=== PATIENT | male | born 1945 ===

== ENCOUNTER → 2016-09-22 | Day surgery (SDC) | payer MEDICARE, OTHER ==
--- NOTE | 2016-09-17 15:55 | Pre-Procedure Note/Attestation ---
Pre-Procedure Note/Attestation Complete Prior to Procedure Planned Procedure: right Procedure Narrative: 1. CATARACT EXTRACTION WITH PHACO AND PC IOL IMPLANTATION, RIGHT EYE. 2.MALYUGIN RING INSERTION, RIGHT EYE FOR FLOPPY IRIS SYNDROME. 3.COMPLEX CATARACT , RIGHT EYE Indications for Procedure Pre-Operative Diagnosis: 1. CATARACT ,RIGHT EYE. 2. FLOPPY IRIS SYNDROME, RIGHT EYE 3. COMPLEX CATARACT , RIGHT EYE. Attestation I attest that I discussed the nature of the procedure; its benefits; risks and complications; and alternatives (and the risks and benefits of such alternatives ), prior to the procedure, with the patient (or the patient's legal signs and displays sales representative). I attest that, if there was a reasonable possibility of needing a blood transfusion, the patient (or the patient's legal signs and displays sales representative) was given the [facility] standardized written summary, pursuant to the [place] Blood Safety Act ([place] Health and Safety Code # 1645, as amended). I attest that I re-evaluated the patient just prior to the surgery and that there has been no change in the patient's H&P, except as documented below: EMA ROBERTS Sep 17, 2016 15:55
[~2016-09-22] VITALS: Ht 168.9 cm; Wt 79.4 kg
[2016-09-22] VITALS (8 sets, daily range): BP systolic 120–141; BP diastolic 67–78
[~2016-09-22] MED LIST: AMLODIPINE BESY10 MG ORAL; Akten 3.5% 1ml Btl ONE; BENAZEPRIL HCL40 MG ORAL; BSS 15ml BTL ONE; BSS 500ml btl ONE; CATAPRES0.1 MG ORAL; Carbachol 0.01% Op Soln 1.5ml vial ONE; Dexamethasone 4mg/ml vial ONE; Diclofenac Sod 0.1% Op Soln ONE; DiphenhydrAMINE 50mg/ml Inj IVP PRN; DiphenhydrAMINE 50mg/ml Inj ONE; EPINEPHrine 1mg/1ml Amp ONE; Gatifloxacin Opth Solution 0.5% ONE; ISOSORBIDE MONO10 MG PO; LIPITOR20 MG ORAL; LR 1000ml 1,000 ML IVLG SCH; LR 1000ml ONE; Labetalol 5mg/ml 20ml vial IV PRN; Lidocaine 1% MPF 10mg/ml 5ml ONE; MINIPRESS1 MG PO; NS Irrig 1000ml ONE; Phenylephrine 10% Opth Soln 5ml ONE; Povidone-Iodine 5% opth solution ONE; Sodium Hyaluronate 10 mg/ml 0.85ml ONE; Sterile Water Irrig 1000ml IRRIG ONE; Tetracaine 0.5% Opth Soln ONE; Tropicamide 1% Opth Soln ONE; acetaZOLAMIDE 125mg tab ORAL ONE; fentaNYL 100 mcg/2 mL IV ONE
[2016-09-22] MEDS: Akten 3.5% 1ml Btl RIGHT EYE SCH ×3 (07:07→07:33)
[2016-09-22] MEDS: Diclofenac Sod 0.1% Op Soln RIGHT EYE SCH ×3 (07:07→07:33)
[2016-09-22] MEDS: Tropicamide 1% Opth Soln RIGHT EYE SCH ×3 (07:08→07:33)
[2016-09-22] MEDS: Gatifloxacin Opth Solution 0.5% RIGHT EYE SCH ×3 (07:08→07:33)
[2016-09-22] MEDS: Phenylephrine 10% Opth Soln 5ml RIGHT EYE SCH ×3 (07:08→07:33)
--- NOTE | 2016-09-22 08:33 | Anethesia Preoperative Eval ---
Anesthesia Pre-op PMH/ROS General Date of Evaluation: Sep 22, 2016 Anesthesiologist: Jose F ASA Score: ASA 2 Mallampati Score Class I : Soft palate, uvula, fauces, pillars visible Class II: Soft palate, uvula, fauces visible Class III: Soft palate, base of uvula visible Class IV: Only hard plate visible Mallampati Classification: Class II Surgeon: César Diagnosis: Right cataract Surgical Procedure: Right cataract extraction with IOL Anesthesia History: none Family History: no anesthesia problems Allergies: Coded Allergies: No Known Allergies (Unverified , 09/17/16) Medications: see eMAR Past Medical History Cardiovascular: Reports: HTN, other - HLD, Denies: CAD, IA, arrhythmia, valve dz Pulmonary: Denies: COPD, DINORA, asthma, other Gastrointestinal/Genitourinary: Reports: other - BPH, Denies: CRI, ESRD, GERD Neurologic/Psychiatric: Denies: CVA, TIA, dementia, depression/anxiety, other Endocrine: Denies: DM, hypothyroidism, other, steroids HEENT: Reports: cataract (L), cataract (R), Denies: [place] (L), [place] (R), glaucoma, other Hematology/Immune: Denies: DVT, anemia, bleeding disorder, other Musculoskeletal/Integumentary: Reports: DJD, Denies: DDD, OA, RA, edema, other PSxH Narrative: lap appy, TURP Anesthesia Pre-op Phys. Exam Physician Exam Last Vital Signs Date Time Temp Pulse Resp B/P Pulse Ox O2 Delivery O2 Flow Rate FiO2 09/22/16 07:18 97.3 59 20 121/67 96 Room Air Constitutional: NAD Cardiovascular: RRR Respiratory: CTA Airway Exam Mallampati Score: Class II MO: full Dentures: lower, upper - partial Anesthesia Pre-op A/P Labs see chart Studies Pre-op Studies: EKG - sr Risk Assessment & Plan Assessment: ASA II Plan: MAC Status Change Before Surgery: No Pre-Antibiotics Drug: N/A MARA CUNNINGHAM M.D. Sep 22, 2016 08:33
--- NOTE | 2016-09-22 08:35 | Immediate Post-Op Evaluation ---
Immediate Post-Op Evalulation Immediate Post-Op Evalulation Procedure: Right cataract extraction with IOL Date of Evaluation: Sep 22, 2016 Time of Evaluation: 09:09 IV Fluids: 300 Blood Products: 0 Estimated Blood Loss: 0 Urinary Output: 0 Blood Pressure Systolic: 120 Blood Pressure Diastolic: 77 Pulse Rate: 59 Respiratory Rate: 16 O2 Sat by Pulse Oximetry: 98 Temperature (Fahrenheit): 97.2 Pain Score (1-10): 0 Nausea: No Vomiting: No Complications 0 Patient Status: awake, reacts, patent, none Hydration Status: adequate Drug: N/A MARA CUNNINGHAM M.D. Sep 22, 2016 08:34
--- NOTE | 2016-09-22 08:35 | 48 Hour Post Anesthesia Eval ---
Post Anesthesia Evaluation Procedure: Right cataract extraction with IOL Date of Evaluation: Sep 22, 2016 Blood Pressure Systolic: 125 0: 78 Pulse Rate: 60 Respiratory Rate: 16 O2 Sat by Pulse Oximetry: 97 Airway: patent Nausea: No Vomiting: No Pain Intensity: 0 Hydration Status: adequate Cardiopulmonary Status: at baseline Mental Status/LOC: patient returned to baseline Post-Anesthesia Complications: 0 Follow-up care needed: ready to discharge MARA CUNNINGHAM M.D. Sep 22, 2016 08:35
--- NOTE | 2016-09-22 09:14 | Discharge Summary ---
Discharge Summary Discharge Summary Discharge Summary DATE OF ADMISSION:09/22/2016 DATE OF DISCHARGE:09/22/2016 REASON FOR HOSPITALIZATION: SURGERY PERFORMED: 1- cataract extraction with phaco and PC IOl implantation right eye 2- Malyugin ring insertion for treatment of floppy iris syndrome 3- Complwx catarct extraction, right eye CONDITION IN THE HOSPITAL:The patient tolerated the surgery without complications. DISCHARGE CONDITION: The patient was stable at discharge. DISCHARGE MEDICATIONS: 1. Vigamox eye drops one drop q.i.d, 2. Prednisolone one drop q.i.d, 3. Ilevro eye drop one drop qd. POSTOPERATIVE ORDERS: The patient has to rest at home. No bending, No lifting, No watching Television tonight. POSTOPERATIVE FOLLOW UP: The patient will be followed in my office tomorrow morning at 7 o'clock. EMA ROBERTS Sep 22, 2016 09:14
--- NOTE | 2016-09-22 09:17 | Brief Operative Note ---
Immediate Post Operative Note Operative Note Pre-op Diagnosis: 1. CATARACT ,RIGHT EYE. 2. FLOPPY IRIS SYNDROME, RIGHT EYE 3. COMPLEX CATARACT , RIGHT EYE. Procedure: 1- Cataract extraction with phaco and PC IOL implantation, right eye 2- Malyugin ring insertion for floppy iris syndrome treatment 3-Complex cataract extraction, right eye Post-op Diagnosis: same as pre-op Surgeon: Ema Lindsey MD Lean Consultant: None Additional Surgeons: None Anesthesiologist: Oscar Tay Anesthesia: MAC Specimen: none Complications: none Condition: stable Estimated Blood Loss: none Drains: none Implant(s) used?: Yes - Monofocal PC IOL implanted in the right eye without complication EMA LINDSEY Sep 22, 2016 09:17
--- NOTE | 2016-09-22 09:44 | Operative Note - PDOC ---
Operative Note Operative Note Operative Report DATE OF OPERATION:09/22/2016 FACILITY: [facility] SURGEON: Sharath Lindsey MD. PLATING AND POINT ASSEMBLY SUPERVISOR: None ANESTHESIOLOGIST: Dr. Kohler ANESTHESIA: Monitored anesthesia care (MAC) PREOPERATIVE DIAGNOSES: 1. Cataract, right eye. 2. Floppy iris right eye. 3- Complex cataract, right eye 4- astigmatism, right eye POSTOPERATIVE DIAGNOSES: 1. Cataract,right eye. 2. Astigmatism, right eye. 3- Complex cataract, right eye. 4- Floppy iris syndrome. SURGERY PERFORMED: 1. Cataract extraction with phacoemulsification and posterior chamber intraocular lens implantation in the right eye. 2. Insertion, Malyugin ring, right eye INDICATION FOR SURGERY: The patient is an 70- year-old gentleman with history of high blood pressure, hypercholestrolemia, benign prostatic hypertrophy. He is taking atorvastatin, clonidine, amlodipine, benazepril, prazosin , Isosorbide, and he was taking Flomax for along time. He had prostate and varicose surgery., apandectomy and coronary angiography. He is not allergic to mecayion. . He is smoker and sicial drinker. He is complaining of blurry vision in the right eye. On examination of the right eye., the cornea is clear. Anterior chamber is clean and quiet, but is shallow. The pupillary reflex is normal. There is no RAPD. There is 4 nuclear sclerosis and 2 cortical cataract. The fundus shows normal optic disc, with maculopathy, and periphery retina is flat. To improve his vision int he right eye, the cataract has to be removed and posterior chamber intraocular lens has to be implanted. INFORMED CONSENT: The nature of the surgery, risks benefits, alternatives, and potential complications were explained all in detail to the patient. The potential complications including. But not limited to bleeding, infection, posterior capsular rupture,lens subluxation, flat anterior chamber,iris prolapse , uveitis, corneal edema, macular edema, endophthalmitis, retinal detachment, loss of vision and even loss of the eye were all explained in detail to the patient. The patient voiced understanding and accepted all the complications.The alternatives including accommodating lens, multifocal lens, toric lens, and conventional cataract surgery with limbal relaxing incision (LRI ) for treatment of astigmatism were all explained in detail to the patient who voiced understanding. The patient elected to have cataract surgery with insertion of the multifocal lens and limbal relaxing incision for astigmatism. Then, he signed the consent from,which is in the chart. DESCRIPTION OF SURGERY AND FINDINGS: Following hat, the patient was taken to the operation room in a stable condition. Lidocaine gel Ak[place] 3.5% were applied to the conjunctiva of the right eye. Anesthesia was given by the anesthesiologist, Dr. Kohler. After adequate anesthesia and sedation had been achieved, the right eye was prepped and draped in the usual and sterile fashion for intraocular surgery.Following that, a speculum was placed in the right eye. Following that, before the patient was taken to the operation room, the 180 and 90 meridian of the cornea was marked. In the operation room, using a corneal marker and marking pen, the steep meridian of the cornea was marked. Following that, using a sheridan knife, two parallel incisions was placed on the steep meridian of the cornea to treat the patients astigmatism. Following that, using a super sharp knife, a clear corneal side port was created. Following that 1% lidocaine without preservative (MPF) was injected into the anterior chamber.Viscoelastic agent [place] was injected into the anterior chamber. Following that, a clear corneal temporal keratotomy was performed with a 2.8 mm keratome. Following that Malyugin ring was inserted and engaged with the sphincter of the pupil and a sheridan shape space was created for the safe phaco.Following that, viscoelastic agent was injected into the anterior chamber again. Following that, Vision blue was injected under the viscoelastic agent to stain the anterior capsule. Following that, a clear fresh viscoelastic agent was injected into the anterior chamber again. Under the viscoelastic agent, an anterior capsulotomy was performed in the fashion of capsulorrhexis beautifully. Following that viscoelastic agent was removed from the anterior chamber. Following that, using a balanced salt solution hydrodissection and hydrodelineation was performed and the nucleus was freed. Following that, the viscoelastic agent was injected into the anterior chamber again to protect the endothelium of the cornea. Following that, using phacoemulsification machine in the fashion of horizontal chop, the nucleus was removed in toto. Following that , the cortical material was removed from the capsular bag with irrigation aspiration unit and the capsular bag was polished.Following that, the capsular bag was filled with viscoelastic agent. Following that, a+20.0 diopter , ZCB00 foldable PCIOL with serial number [id number] was injected into the capsular bag. Using a Sinskey hook, the lens was manipulated within the proper position. The Malyugin ring was removed Following that, viscoelastic agent was removed from the anterior and posterior part of the lens.The anterior chamber was filled with balanced salt solution. Following that, the wound was hydrated with balanced salt solution and the wound was checked for leakage. There was no leakage. Following that, the wound was hydrated and the wound was checked for leakage. There was no leakage. Following that, Vigamox eye drops were applied to the conjunctiva of the right eye. The patient tolerated the surgery without complications. At the end of the surgery, the eye was patched with a clear sterile fenestrated shield. Following that, the patient was transferred to the recovery room. In the recovery room, 125mg Diamox was given by mouth stat. Postoperative orders and directions were given to the patient. The patient will be discharged home upon stabilization. The patient will be followed in my office tomorrow morning at 7 o 'clock. MD ALEJANDRA Rivas JOHN Sep 22, 2016 09:44
== END | disposition home or self-care (01) ==
LOC: SUR 06:36
DX: H25.11 Age-related nuclear cataract, right eye (principal); H25.011 Cortical age-related cataract, right eye; H21.81 Floppy iris syndrome; H52.201 Unspecified astigmatism, right eye; I10 Essential (primary) hypertension; E78.5 Hyperlipidemia, unspecified; N40.0 Benign prostatic hyperplasia without lower urinary tract symptoms; M19.90 Unspecified osteoarthritis, unspecified site; F17.200 Nicotine dependence, unspecified, uncomplicated; Z90.49 Acquired absence of other specified parts of digestive tract
CPT/HCPCS: 66982; 66999; J0171; J1100; J1200; J3010; J7120; V2632; 94003; 94150

== ENCOUNTER → 2016-09-29 | Day surgery (SDC) | payer MEDICARE, OTHER ==
--- NOTE | 2016-09-25 12:18 | Pre-Procedure Note/Attestation ---
Pre-Procedure Note/Attestation Complete Prior to Procedure Planned Procedure: left Procedure Narrative: 1. CATARACT EXTRACTION WITH PHACO AND PC IOL IMPLANTATION, LEFT EYE. 2.MALYUGIN RING INSERTION, LEFT EYE FOR FLOPPY IRIS SYNDROME. 3.COMPLEX CATARACT , LEFT EYE Indications for Procedure Pre-Operative Diagnosis: 1. CATARACT ,LEFT EYE. 2. FLOPPY IRIS SYNDROME, LEFT EYE 3. COMPLEX CATARACT , LEFT EYE. Attestation I attest that I discussed the nature of the procedure; its benefits; risks and complications; and alternatives (and the risks and benefits of such alternatives ), prior to the procedure, with the patient (or the patient's legal door to door sales representative). I attest that, if there was a reasonable possibility of needing a blood transfusion, the patient (or the patient's legal door to door sales representative) was given the [facility] standardized written summary, pursuant to the [place] Blood Safety Act ([place] Health and Safety Code # 1645, as amended). I attest that I re-evaluated the patient just prior to the surgery and that there has been no change in the patient's H&P, except as documented below: EMA ROBERTS Sep 25, 2016 12:18
[2016-09-29] VITALS (9 sets, daily range): BP systolic 123–144; BP diastolic 61–77
[~2016-09-29] VITALS: Ht 168.9 cm; Wt 79.4 kg
[~2016-09-29] MED LIST changes: -DiphenhydrAMINE 50mg/ml Inj IVP PRN; -DiphenhydrAMINE 50mg/ml Inj ONE; +LR 1000ml 1,000 ML IV SCH; -LR 1000ml ONE; -Labetalol 5mg/ml 20ml vial IV PRN; +Maxitrol Opth Oint 3.5gm ONE; -NS Irrig 1000ml ONE; -Sterile Water Irrig 1000ml IRRIG ONE; -fentaNYL 100 mcg/2 mL IV ONE; +fentaNYL 100 mcg/2 mL IV PRN
[2016-09-29] MEDS: Phenylephrine 10% Opth Soln 5ml LEFT EYE SCH ×3 (06:05→06:21)
[2016-09-29] MEDS: Diclofenac Sod 0.1% Op Soln LEFT EYE SCH ×3 (06:05→06:20)
[2016-09-29] MEDS: Akten 3.5% 1ml Btl LEFT EYE SCH ×3 (06:05→06:20)
[2016-09-29] MEDS: Tropicamide 1% Opth Soln LEFT EYE SCH ×3 (06:05→06:21)
[2016-09-29] MEDS: Gatifloxacin Opth Solution 0.5% LEFT EYE SCH ×3 (06:05→06:21)
--- NOTE | 2016-09-29 07:46 | Anethesia Preoperative Eval ---
Anesthesia Pre-op PMH/ROS General Date of Evaluation: Sep 29, 2016 Time of Evaluation: 07:20 Anesthesiologist: Curt ASA Score: ASA 2 Mallampati Score Class I : Soft palate, uvula, fauces, pillars visible Class II: Soft palate, uvula, fauces visible Class III: Soft palate, base of uvula visible Class IV: Only hard plate visible Mallampati Classification: Class II Surgeon: César Diagnosis: Cataract left eye Surgical Procedure: Extraction of cataract with IOL Allergies: Coded Allergies: No Known Allergies (Unverified , 09/17/16) Past Medical History Cardiovascular: Reports: CAD, HTN Pulmonary: Denies: COPD, [place], asthma, other Gastrointestinal/Genitourinary: Denies: CRI, ESRD, GERD, other Neurologic/Psychiatric: Denies: CVA, TIA, dementia, depression/anxiety, other Endocrine: Denies: DM, hypothyroidism, other, steroids HEENT: Reports: cataract (L), cataract (R) Hematology/Immune: Denies: DVT, anemia, bleeding disorder, other Musculoskeletal/Integumentary: Denies: DDD, DJD, OA, RA, edema, other PMH Narrative: HTN, CAD, hypercholesterolemia PSxH Narrative: Cataract, TURP Anesthesia Pre-op Phys. Exam Physician Exam Last Vital Signs Date Time Temp Pulse Resp B/P Pulse Ox O2 Delivery O2 Flow Rate FiO2 09/29/16 06:16 97.0 61 20 130/61 98 Room Air Constitutional: NAD Neurologic: CN 2-12 intact Cardiovascular: RRR, no M/R/G Respiratory: CTA Gastrointestinal: S/NT/ND Airway Exam Mallampati Score: Class II MO: full ROM: full Teeth: intact Anesthesia Pre-op A/P Studies Pre-op Studies: EKG - SR, NSSTTW changes Risk Assessment & Plan Assessment: For cataract extraction Plan: MAC, TIVA Status Change Before Surgery: No Pre-Antibiotics Drug: None MAXIMINO GONZALES M.D. Sep 29, 2016 07:46
--- NOTE | 2016-09-29 07:47 | Immediate Post-Op Evaluation ---
Immediate Post-Op Evalulation Immediate Post-Op Evalulation Procedure: Extraction of cataract left eye with IOL Date of Evaluation: Sep 29, 2016 Time of Evaluation: 08:10 IV Fluids: 300 Blood Pressure Systolic: 137 Blood Pressure Diastolic: 77 Pulse Rate: 59 Respiratory Rate: 11 O2 Sat by Pulse Oximetry: 95 Temperature (Fahrenheit): 97.5 Pain Score (1-10): 0 Nausea: No Vomiting: No Complications No complication Patient Status: awake, patent, none Hydration Status: adequate Drug: None MAXIMINO GONZALES M.D. Sep 29, 2016 07:47
--- NOTE | 2016-09-29 08:11 | 48 Hour Post Anesthesia Eval ---
Post Anesthesia Evaluation Procedure: Extraction of cataract left eye with IOL Date of Evaluation: Sep 29, 2016 Time of Evaluation: 08:40 Blood Pressure Systolic: 135 0: 78 Pulse Rate: 58 Respiratory Rate: 12 O2 Sat by Pulse Oximetry: 98 Airway: patent Nausea: No Vomiting: No Pain Intensity: 0 Hydration Status: adequate Cardiopulmonary Status: Stable Mental Status/LOC: patient returned to baseline Follow-up Care/Observations: As per surgery Post-Anesthesia Complications: No anesthetic complication Follow-up care needed: N/A MAXIMINO GONZALES M.D. Sep 29, 2016 08:11
--- NOTE | 2016-09-29 08:13 | Brief Operative Note ---
Immediate Post Operative Note Operative Note Chief Complaint: Blurry vision, left eye. Difficulty reading and driving Pre-op Diagnosis: 1. CATARACT ,LEFT EYE. 2. FLOPPY IRIS SYNDROME, LEFT EYE 3. COMPLEX CATARACT , LEFT EYE. Procedure: 1- Cataract extraction with phaco and PC IOL implantation, left eye 2- Malyugin ring insertion for treatment of floppy iris syndrome, left eye 3- Complex cataract, left eye Post-op Diagnosis: same as pre-op Surgeon: Ema Lindsey MD Regional Tanker Truck Driver: None Additional Surgeons: None Anesthesiologist: Dr. Gonzalez Anesthesia: MAC Specimen: none Complications: none Condition: stable Estimated Blood Loss: none Drains: none Implant(s) used?: Yes - Monofocal PC IOL implanted in the left eye without complication EMA LINDSEY Sep 29, 2016 08:13
--- NOTE | 2016-09-29 10:08 | Pre-op HX & Phy Repo 2 SIG ---
DATE OF ADMISSION: 09/29/2016 REASON FOR EVALUATION: I was asked by Dr. Sharath Lindsey, to see this 70-year-old male, who is going for elective surgery on the left eye. The patient has a cataract left eye. Please see full ophthalmology History and Physical by Dr. Sharath Lindsey. The patient is examined. Chart was reviewed. PAST MEDICAL HISTORY/REVIEW OF SYSTEMS: Remarkable for hypertension, benign prostatic hypertrophy, hyperlipidemia. Denies history of heart attack, chest pain or palpitation. No history of respiratory problem. No GI problems. Denies history of diabetes. No history of anemia or thyroid problem. No renal failure. No arthritis. PAST SURGICAL HISTORY: Cataract right eye two weeks ago, appendectomy 5 years ago and TURP. MEDICATIONS: Present medications include baby aspirin, vitamin B12, Lipitor 20 mg, amlodipine, benazepril 40 mg, clonidine 0.1 mg, isosorbide 10 mg and Flomax. ALLERGIES: Not known. SOCIAL HISTORY: The patient smoked for approximately 20 years and stopped three years ago. Denies street drugs or alcohol. FAMILY HISTORY: Mother from complication of stroke and father with heart attack. PHYSICAL EXAMINATION: GENERAL: The patient is alert. VITAL SIGNS: Blood pressure 130/60, temperature 97.0 degrees, pulse 61 per minute and regular, respirations 20 per minute, and O2 saturation 98% in room air. The patient's BMI is 27.8. SKIN: Dry and warm. No diaphoresis or rashes. LYMPHATICS: Lymph nodes are not enlarged. HEENT: Head, normocephalic. Normal hair growth. Ears, clear. No discharge. Nose, clear. No discharge. Eyes, full description per Dr. Sharath Lindsey. Mouth, clear and moist. No dentures. NECK: Supple. No jugular venous distention. Carotids artery +2. Trachea midline. CHEST: No deformity or asymmetry. LUNGS: Clear to auscultation and percussion. No rales or rhonchi. HEART: Heart sounds distant. Regular. No ectopy. No murmur. No S3 or S4. ABDOMEN: Soft. No palpable mass. No rebound. EXTREMITIES: No edema. No varicose veins. No deformity. GENITALIA: Intact. History of BPH and TURP. No CVA tenderness. NERVOUS SYSTEM: No tremor or nystagmus. No asymmetry. LABORATORY AND DIAGNOSTIC DATA: Electrocardiogram done on 09/08/2016, normal sinus rhythm, 76 per minute, ST T-wave abnormality. Consider lateral ischemia. The patient did not eat or drink from 5 p.m. yesterday. Laboratory, blood sugar 107 and bilirubin 1.3. See copy of the laboratory work. IMPRESSION: 1. Cataract, left eye. 2. Hypertension, controlled. 3. Benign prostatic hypertrophy. 4. Hyperlipidemia. 5. Ischemic ECG changes. PLAN: Cataract extraction, left eye with intraocular lens implant per Dr. Sharath Lindsey. CONCLUSION: The patient's vital signs stable. EKG showed ST T-wave abnormality. Consider lateral ischemia. Clinically denies chest pain nor history of heart attack. The patient did not eat or drink from last night. The patient's condition optimized for surgery. Thank you very much, Dr. Lindsey, for privilege to participate presurgical care of this interesting patient. Marjorie Gooden M.D. DR: Krissy JOB#: [id number] CC:
--- NOTE | 2016-09-29 19:02 | Operative Note - PDOC ---
Operative Note Operative Note Operative Report DATE OF OPERATION: 09/29/2016 FACILITY: [facility] SURGEON: Sharath Lindsey PHYSICS AND ASTRONOMY PROFESSOR: None ANESTHESIOLOGIST: Dr. Jurado ANESTHESIA: Monitored anesthesia care (MAC) PREOPERATIVE DIAGNOSES: 1. Cataract, left eye. 2. Floppy iris syndrome, left eye. 3. Complex cataract, left ey POSTOPERATIVE DIAGNOSES: 1. Cataract, left eye. 2. Floppy iris syndrome, left eye. 3. Complex cataract, left ey SURGERY PERFORMED: 1. Cataract extraction with phacoemulsification and posterior chamber intraocular lens implantation in the left eye. 2. Malyugin ring insertion for the IFIS treatment, left eye 3. Complex cataract removal, left eye INDICATION FOR SURGERY: The patient is an 70- year-old gentleman with history of high blood pressure hypercholesterolemia benign prostatic hypertrophy ( BPH ), cronery artery disease and goat. He is taking atorvastatin , clonidine, amlodipine, benazepril, prazosin, isosorbide dinitrate, and flomax. He had prostate surgery, varicose surgery, appandectomy, and angioplasty.He is not allergic to medications. He is complaining of blurry vision in the left eye. On examination of the Left eye., the cornea is clear. Anterior chamber is clean and quiet, but is shallow. The pupillary reflex is normal. There is no RAPD. There is 4 nuclear sclerosis and 2 cortical cataract. He has floppy iris syndrome. Pupil reflex is normal. There is no RAPD. The fundus shows normal optic disc, normal macula, and periphery retina is flat. To improve his vision int he left eye, the cataract has to be removed and posterior chamber intraocular lens has to be implanted. INFORMED CONSENT: The nature of the surgery, risks benefits, alternatives, and potential complications were explained all in detail to the patient. The potential complications including. But not limited to bleeding, infection, posterior capsular rupture,lens subluxation, flat anterior chamber,iris prolapse , uveitis, corneal edema, macular edema, endophthalmitis, retinal detachment, loss of vision and even loss of the eye were all explained in detail to the patient. The patient voiced understanding and accepted all the complications.The alternatives including accommodating lens, multifocal lens, toric lens, and conventional cataract surgery with limbal relaxing incision (LRI ) for treatment of astigmatism were all explained in detail to the patient who voiced understanding. The patient elected to have cataract surgery with insertion of the multifocal lens and limbal relaxing incision for astigmatism. Then, he signed the consent from,which is in the chart. DESCRIPTION OF SURGERY AND FINDINGS: Following hat, the patient was taken to the operation room in a stable condition. Lidocaine gel Akten 3.5% were applied to the conjuctiva of the left eye. Anesthesia was given by the anesthesiologist , Dr. Elias. After adequate anesthesia and sedation had been achieved, the left eye was prepped and draped in the usual and sterile fashion for intraocular surgery.Following that, a speculum was placed in the left eye. Following that, before the patient was taken to the operation room, the 180 and 90 meridian of the cornea was marked. In the operation room, using a corneal marker and marking pen, the steep meridian of the cornea was marked. Following that, using a sheridan knife, two parallel incisions was placed on the steep meridian of the cornea to treat the patients astigmatism. Following that, using a super sharp knife, a clear corneal side port was created. Following that 1% lidocaine without preservative (MPF) was injected into the anterior chamber.Viscoelastic agent Healon was injected into the anterior chamber. Following that, a clear corneal temporal keratotomy was performed with a 2.8 mm keratome. Following that, viscoelastic agent was injected into the anterior chamber again. Following that Malyugin ring inserted and the coils of the ring were engaged with the sphincter of the iris, Vision blue was injected under the viscoelastic agent to stain the anterior capsule. Following that, a clear fresh viscoelastic agent was injected into the anterior chamber again. Under the viscoelastic agent, an anterior capsulotomy was performed in the fashion of capsulorrhexis beautifully. Following that viscoelastic agent was removed from the anterior chamber. Following that, using a balanced salt solution hydrodissection and hydrodelineation was performed and the nucleus was freed. Following that, the viscoelastic agent was injected into the anterior chamber again to protect the endothelium of the cornea. Following that, using phacoemulsification machine inthe fashion of horizontal chop, the nucleus was removed in toto. Following that, the cortical material was removed from the capsular bag with irrigation aspiration unit and the capsular bag was polished.Following that, the capsular bag was filled with viscoelastic agent. Following that, a+18.0 18 diopter , ZCB00 foldable PCIOL was injected into the capsular bag. Using a Sinskey hook, the lens was manipulated within the proper position.Following that, viscoelastic agent was removed from the anterior and posterior part of the lens.The anterior chamber was filled with balanced salt solution. Following that, the wound was hydrated with balanced salt solution and the wound was checked for leakage. There was no leakage. Following that, the wound was hydrated and the wound was checked for leakage. There was no leakage. Following that, Vigamox eye drops were applied to the conjunctiva of the left eye. The patient tolerated the surgery without complications. At the end of the surgery, the eye was patched with a clear sterile fenestrated shield. Following that, the patient was transferred to the recovery room. In the recovery room, 125mg Diamox was given by mouth stat. Postoperative orders and directions were given to the patient. The patient will be discharged home upon stabilization. The patient will be followed in my office tomorrow morning at 7 o 'clock. MD ALEJANDRA Rivas JOHN Sep 29, 2016 19:02
--- NOTE | 2016-09-29 19:05 | Discharge Summary ---
Discharge Summary Discharge Summary Discharge Summary DATE OF ADMISSION:09/29/2016 DATE OF DISCHARGE:09/29/2016 REASON FOR HOSPITALIZATION:Cataract left eye SURGERY PERFORMED: Cataract extraction withphaco and PC IOl implantation in the left eye. CONDITION IN THE HOSPITAL:The patient tolerated the surgery without complications. DISCHARGE CONDITION: The patient was stable at discharge. DISCHARGE MEDICATIONS: 1. Vigamox eye drops one drop q.i.d, 2. Prednisolone one drop q.i.d, 3. Ilevro, qd, POSTOPERATIVE ORDERS: The patient has to rest at home. No bending, No lifting, No watching Television tonight. POSTOPERATIVE FOLLOW UP: The patient will be followed in my office tomorrow morning at 7 o'clock. EMA ROBERTS Sep 29, 2016 19:05
== END | disposition home or self-care (01) ==
LOC: SUR 05:36
DX: H25.12 Age-related nuclear cataract, left eye (principal); H25.012 Cortical age-related cataract, left eye; H21.81 Floppy iris syndrome; I25.10 Atherosclerotic heart disease of native coronary artery without angina pectoris; I10 Essential (primary) hypertension; N40.0 Benign prostatic hyperplasia without lower urinary tract symptoms; E78.5 Hyperlipidemia, unspecified; Z87.891 Personal history of nicotine dependence; Z90.49 Acquired absence of other specified parts of digestive tract; Z79.82 Long term (current) use of aspirin
CPT/HCPCS: 66982; J0171; J1100; V2632; 94003; 94150